=== PATIENT | female | born 1980 | race African-American/Black ===

== ENCOUNTER 2019-03-30 04:55 | Emergency (ER) | payer SELFPAY ==
[~2019-03-30] VITALS: Ht 167.6 cm; Wt 59.0 kg
[2019-03-30 05:00] VITALS: BP 113/70
== END 2019-03-30 06:45 | disposition left against medical advice (07) ==
LOC: ER 04:55
DX: R46.2 Strange and inexplicable behavior (principal); Z98.890 Other specified postprocedural states
CPT/HCPCS: 99284